=== PATIENT | female | born 1950 | race Two or more races ===

== ENCOUNTER 2018-04-07 07:39 | Day surgery (SDC) | payer OTHER, MEDICAID ==
[~2018-04-07] VITALS: Ht 160 cm; Wt 106.6 kg
[~2018-04-07 07:39] MED LIST: AMLO5TAB2 PO; CLON0.1T PO; CLOP75TA28 PO; ESCI20TA PO; GABA100C9 PO; GLIM2TAB33 PO; HYDR25TA4 PO; LISI-646 PO; LORA1TAB12 PO; METF-370 PO; METO-158 PO; RANI300C7 PO
[2018-04-07] MEDS ORDERED: IOHEXOL 350 MG/ML 100ML IJ ONE (08:30)
[2018-04-07] MEDS ORDERED: LIDOCAINE 2% (LOCAL ANESTH.) PF 5ml SDV ONE (08:30)
[2018-04-07] MEDS ORDERED: fentaNYL CITRATE 100 MCG/2 ML VL ONE (09:34)
[2018-04-07] MEDS ORDERED: VERAPAMIL 2.5MG/ML INJ 2ML VIAL IV ONE (09:34)
[2018-04-07] MEDS ORDERED: ANGIOMAX 250 MG VIAL IV ONE (09:34)
[2018-04-07] MEDS ORDERED: MIDAZOLAM HCL 1MG/1ML-2 ML VIAL ONE (09:35)
[2018-04-07] MEDS ORDERED: HEPARIN SODIUM (PORCINE) 5000 UNITS/ML 1ML VIAL ONE (10:04)
== END 2018-04-07 12:30 | disposition home or self-care (01) ==
LOC: CATH 07:39
PROVIDERS: ATTEND Internal Medicine
DX: R94.39 Abnormal result of other cardiovascular function study (principal); I63.9 Cerebral infarction, unspecified; E66.01 Morbid (severe) obesity due to excess calories; Z68.41 Body mass index [BMI] 40.0-44.9, adult; I10 Essential (primary) hypertension; Z87.891 Personal history of nicotine dependence; E11.9 Type 2 diabetes mellitus without complications; Z79.01 Long term (current) use of anticoagulants; Z79.899 Other long term (current) drug therapy; Z79.84 Long term (current) use of oral hypoglycemic drugs; I47.1 Supraventricular tachycardia
CPT/HCPCS: C1769; C1894; J1644; J2250; J3010; J7030; Q9967; 93458; 99152

== ENCOUNTER 2020-02-14 07:02 | Inpatient (IN) | payer OTHER, MEDICAID ==
[~2020-02-14] VITALS: Ht 160 cm; Wt 99.1 kg
[2020-02-14] VITALS (28 sets, daily range): BP systolic 91–161; BP diastolic 35–106
[~2020-02-14 07:02] MED LIST changes: +AMLO5TAB15 PO; -AMLO5TAB2 PO
[2020-02-14] MEDS ORDERED: ASCORBIC ACID 500 MG TAB PO ONE (07:30)
[2020-02-14] MEDS ORDERED: ZINC SULFATE 220mg CAP or TAB PO ONE (07:30)
[2020-02-14] MEDS ORDERED: cefTRIAXone 1GM/50ML D5W 50 ML IV ONE (07:30)
[2020-02-14] MEDS ORDERED: AZITHROMYCIN 500MG/ 250ML 250 ML IV ONE (07:30)
[2020-02-14 08:31] LABS: Lactic Acid w/Reflex 7.2 mmol/L (0.4-2.0)
[2020-02-14] MEDS: SODIUM CHLORIDE 0.9% 1,000 ML IV ONE ×2 (08:48→10:07)
[2020-02-14] MEDS ORDERED: SODIUM CHLORIDE 0.9% 1,000 ML IV ONE ×4 (08:48→11:30)
[2020-02-14 08:59] LABS: Urine Bacteria FEW /hpf (None Seen); Urine Blood TRACE /uL (Negative); Urine Mucus FEW (None Seen); Urine WBC 23 /hpf (0 - 5)
[2020-02-14 09:06] LABS: Hemoglobin 10.8 g/dL (12.2-16.2)
[2020-02-14 09:08] LABS: BUN/Creatinine Ratio 10.6; Calcium 8.4 mg/dL (8.5-10.1); Hematocrit 34.2 % (36.0-46.0); Mean Corpuscular Hemoglobin 25.5 pg (28.0-32.0); Mean Corpuscular Hgb Conc. 31.6 g/dL (32.0-36.0); Mean Corpuscular Volume 80.6 fL (80.0-100.0); Platelet Count (auto) 230 10^3/uL (140-450); Potassium 3.3 mmol/L (3.5-5.1); Red Blood Cells 4.24 10^6/uL (4.0-5.20); Red Cell Distribution Width 15.7 % (11.8-14.3); White Blood Cell 21.7 10^3/uL (4.4-10.8)
[2020-02-14 09:11] LABS: Bilirubin, Total 1.2 mg/dL (0.2-1.0); Total Protein 6.9 g/dL (6.4-8.2)
[2020-02-14 09:12] LABS: Basophils % (manual) 0 (0.0-2.0); Blast Cells 0; Eosinophils % (manual) 0 (0-7); Monocytes % (manual) 0 (0-12); Promyelocytes % 0; Reactive Lymphocytes 0
[2020-02-14] MEDS ORDERED: NOREPINEPHRINE 8 MG/250ML KIT 250 ML IV ONE (09:29)
[2020-02-14 09:34] LABS: Band Neutrophils % (manual) 25; Lymphocytes % (manual) 1 (10.0-50.0); Metamyelocytes % 7; Myelocytes % 1
[2020-02-14] MEDS: NOREPINEPHRINE 8 MG/250ML KIT 250 ML IV SCH (09:46)
[2020-02-14 09:57] LABS: INR 1.08 (0.9-1.15); Partial Thromboplastin Time 27.9 sec (23.64-32.05)
[2020-02-14] MEDS ORDERED: PROMETHAZINE HCL 25 MG/ML 1ML IV PRN (12:00)
[2020-02-14] MEDS ORDERED: NITROGLYCERIN 0.4 MG SL TAB SL PRN (12:00)
[2020-02-14] MEDS ORDERED: ACETAMINOPHEN 325 MG TAB PO PRN (12:00)
[2020-02-14] MEDS ORDERED: MORPHINE SULF INJ 2 MG/ML SYRINGE 1ML IV PRN (12:00)
[2020-02-14] MEDS ORDERED: hydrALAZINE HCL 20 MG/ML VL IV ONE (12:00)
[2020-02-14] MEDS ORDERED: HYDROcodone-ACET 5/325MG TAB PO PRN (12:00)
[2020-02-14] MEDS ORDERED: DEXTROSE (50%) 50ML SYRG IV PRN (12:15)
[2020-02-14] MEDS ORDERED: POTASSIUM CHL 20MEQ/100ML 100 ML IV ONE (12:15)
[2020-02-14] MEDS ORDERED: ENOXAPARIN SOD 100 MG/1 ML SYRINGE SC ONE (12:15)
[2020-02-14] MEDS: SODIUM CHLORIDE 0.9% 1,000 ML IV SCH ×2 (12:55→22:05)
[2020-02-14] MEDS: ACCU-CHEK COMFORT CURVE STRIP VI SCH ×2 (18:04→22:16)
[2020-02-14] MEDS: InsuLIN REG 1unit/0.01ml Soln (100units/ml) SC SCH ×2 (18:06→22:17)
[2020-02-14] MEDS ORDERED: LORazepam 0.5 MG TAB PO PRN (21:00)
[2020-02-14] MEDS: GABAPENTIN 100 MG CAP PO SCH (22:05)
[2020-02-14] MEDS: PIPERACILLIN-TAZOB 2.25GM 50 ML IV SCH (23:53)
[2020-02-15] VITALS (48 sets, daily range): BP systolic 112–202; BP diastolic 47–113
[2020-02-15 05:04] LABS: Hemoglobin 9.4 g/dL (12.2-16.2)
[2020-02-15 05:05] LABS: Hematocrit 29.1 % (36.0-46.0); Mean Corpuscular Hemoglobin 25.9 pg (28.0-32.0); Mean Corpuscular Hgb Conc. 32.3 g/dL (32.0-36.0); Mean Corpuscular Volume 80.2 fL (80.0-100.0); Platelet Count (auto) 162 10^3/uL (140-450); Red Blood Cells 3.62 10^6/uL (4.0-5.20); Red Cell Distribution Width 15.9 % (11.8-14.3); White Blood Cell 23.4 10^3/uL (4.4-10.8)
[2020-02-15 05:07] LABS: Basophils % (manual) 0 (0.0-2.0); Blast Cells 0; Eosinophils % (manual) 0 (0-7); Metamyelocytes % 0; Myelocytes % 0; Promyelocytes % 0; Reactive Lymphocytes 0
[2020-02-15 05:19] LABS: Band Neutrophils % (manual) 4; Lymphocytes % (manual) 2 (10.0-50.0); Monocytes % (manual) 2 (0-12)
[2020-02-15 05:22] LABS: Calcium 7.4 mg/dL (8.5-10.1); Potassium 3.6 mmol/L (3.5-5.1)
[2020-02-15 05:24] LABS: BUN/Creatinine Ratio 20.4
[2020-02-15] MEDS: PIPERACILLIN-TAZOB 2.25GM 50 ML IV SCH ×2 (06:05→14:01)
[2020-02-15] MEDS: ACCU-CHEK COMFORT CURVE STRIP VI SCH ×4 (06:38→22:00)
[2020-02-15] MEDS: InsuLIN REG 1unit/0.01ml Soln (100units/ml) SC SCH ×4 (06:38→22:09)
[2020-02-15] MEDS: SODIUM CHLORIDE 0.9% 1,000 ML IV SCH (08:00)
[2020-02-15] MEDS: GLIMEPIRIDE 2 MG TAB PO SCH (08:58)
[2020-02-15] MEDS ORDERED: cefTRIAXone 1GM/50ML D5W 50 ML IV ONE (09:00)
[2020-02-15] MEDS ORDERED: CHOLECALCIFEROL (VITD3) 1,000IU=25mCg TAB PO SCH (10:00)
[2020-02-15] MEDS ORDERED: ASCORBIC ACID 500 MG TAB PO SCH (10:00)
[2020-02-15] MEDS ORDERED: ZINC SULFATE 220mg CAP or TAB PO SCH (10:00)
[2020-02-15] MEDS ORDERED: PATIENTS OWN MEDICATION (Escitalopram Oxalate (Lexapro) 1 TAB) PO SCH (10:00)
[2020-02-15] MEDS: NOREPINEPHRINE 8 MG/250ML KIT 250 ML IV SCH (10:07)
[2020-02-15] MEDS: AZITHROMYCIN 500MG/ 250ML 250 ML IV SCH (10:57)
[2020-02-15] MEDS: PANTOPRAZOLE 40 MG TAB PO SCH (10:59)
[2020-02-15] MEDS: CLOPIDOGREL BISULFATE 75 MG TAB PO SCH (10:59)
[2020-02-15] MEDS: CITALOPRAM HYDROBR 20 MG TAB PO SCH (10:59)
[2020-02-15] MEDS ORDERED: LISINOPRIL 20 MG TAB PO SCH (14:30)
[2020-02-15] MEDS ORDERED: IPRATROPIUM BROM 0.5 MG/2.5ML INH SOL NEB PRN (14:30)
[2020-02-15] MEDS ORDERED: LORazepam 0.5 MG TAB PO PRN (14:30)
[2020-02-15] MEDS ORDERED: FUROSEMIDE 100 MG/10ML VIAL IV ONE (14:30)
[2020-02-15] MEDS: methylPREDNISolone SOD SUCC 125 MG/2 ML VL IV SCH ×2 (14:49→21:49)
[2020-02-15] MEDS: LEVALBUTEROL HCL 1.25 MG/3 ML NEB NEB SCH ×3 (14:50→23:53)
[2020-02-15] MEDS: METOPROLOL TARTRATE 50 MG TAB PO SCH ×2 (14:56→21:51)
[2020-02-15] MEDS ORDERED: IOHEXOL 350 MG/ML 100ML IJ ONE (15:24)
[2020-02-15] MEDS ORDERED: PIPERACILLIN-TAZOB 3.375GM 100 ML IV SCH (18:00)
[2020-02-15] MEDS: PIPERACILLIN-TAZOB 3.375GM 100 ML IV SCH (18:36)
[2020-02-15] MEDS: POTASSIUM CHL 20 Meq TABLET PO SCH (18:37)
[2020-02-15] MEDS: amLODIPine BESYLATE 5 MG TAB PO SCH (18:38)
[2020-02-15] MEDS: GABAPENTIN 100 MG CAP PO SCH (21:49)
[2020-02-16] VITALS (28 sets, daily range): BP systolic 127–179; BP diastolic 41–90
[2020-02-16] MEDS: PIPERACILLIN-TAZOB 3.375GM 100 ML IV SCH ×3 (00:30→12:25)
[2020-02-16] MEDS: methylPREDNISolone SOD SUCC 125 MG/2 ML VL IV SCH ×2 (05:45→14:33)
[2020-02-16] MEDS: LEVALBUTEROL HCL 1.25 MG/3 ML NEB NEB SCH ×3 (06:14→19:03)
[2020-02-16] MEDS: ACCU-CHEK COMFORT CURVE STRIP VI SCH ×3 (07:02→18:27)
[2020-02-16] MEDS: InsuLIN REG 1unit/0.01ml Soln (100units/ml) SC SCH ×3 (07:06→18:29)
[2020-02-16 07:32] LABS: Basophils # (auto) 0 10 ^3/uL (0-0.2); Basophils % (auto) 0.1 % (0.0-2.0); Eosinophils # (auto) 0 10 ^3/uL (0-0.8); Eosinophils % (auto) 0.3 % (0.0-7.0); Hematocrit 33.2 % (36.0-46.0); Hemoglobin 10.5 g/dL (12.2-16.2); Lymphocytes # (auto) 0.6 10 ^3/uL (0.4-5.4); Lymphocytes % (auto) 5.2 % (10.0-50.0); Mean Corpuscular Hemoglobin 25.3 pg (28.0-32.0); Mean Corpuscular Hgb Conc. 31.7 g/dL (32.0-36.0); Mean Corpuscular Volume 79.6 fL (80.0-100.0); Monocytes # (auto) 0.2 10 ^3/uL (0-1.3); Monocytes % (auto) 1.4 % (0.0-12.0); Neutrophils # (auto) 10.7 10 ^3/uL (1.6-8.6); Platelet Count (auto) 170 10^3/uL (140-450); Red Blood Cells 4.17 10^6/uL (4.0-5.20); Red Cell Distribution Width 16.1 % (11.8-14.3); White Blood Cell 11.5 10^3/uL (4.4-10.8)
[2020-02-16 07:53] LABS: Calcium 8.6 mg/dL (8.5-10.1); Potassium 3.3 mmol/L (3.5-5.1)
[2020-02-16] MEDS ORDERED: GLIMEPIRIDE 2 MG TAB PO SCH (08:00)
[2020-02-16] MEDS: GLIMEPIRIDE 2 MG TAB PO SCH (08:33)
[2020-02-16] MEDS ORDERED: FUROSEMIDE 100 MG/10ML VIAL IV SCH (10:00)
[2020-02-16] MEDS ORDERED: HCTZ 25 MG TAB PO SCH (10:00)
[2020-02-16] MEDS: CITALOPRAM HYDROBR 20 MG TAB PO SCH (10:01)
[2020-02-16] MEDS: CLOPIDOGREL BISULFATE 75 MG TAB PO SCH (10:01)
[2020-02-16] MEDS: METOPROLOL TARTRATE 50 MG TAB PO SCH (10:01)
[2020-02-16] MEDS: POTASSIUM CHL 20 Meq TABLET PO SCH (10:02)
[2020-02-16] MEDS: PANTOPRAZOLE 40 MG TAB PO SCH (10:02)
[2020-02-16] MEDS: AZITHROMYCIN 500MG/ 250ML 250 ML IV SCH (10:07)
[2020-02-16] MEDS: amLODIPine BESYLATE 5 MG TAB PO SCH (12:25)
[2020-02-16] MEDS ORDERED: POTASSIUM CHL 20 Meq TABLET PO ONE (15:30)
[2020-02-16] MEDS ORDERED: LISINOPRIL 20 MG TAB PO SCH (15:30)
[2020-02-16] MEDS ORDERED: ERTAPENEM SOD 1 GM INJ VIAL IM SCH (15:30)
[2020-02-16] MEDS ORDERED: ERTAPENEM SOD 1 GM INJ VIAL IV SCH (15:45)
[2020-02-16] MEDS ORDERED: ERTAPENEM SOD INJ 1 GM in SODIUM CHL 0.9% 50 ML IV SCH (16:00)
[2020-02-16] MEDS ORDERED: PRED20TA2 PO (16:03)
[2020-02-16] MEDS ORDERED: FUR20T PO (16:03)
[2020-02-16] MEDS ORDERED: POTA-220 PO (16:03)
[2020-02-17] MEDS ORDERED: predniSONE 20 MG TAB PO SCH (10:00)
[2020-02-17] MEDS ORDERED: FUROSEMIDE 20 MG TAB PO SCH (10:00)
== END 2020-02-16 21:21 | disposition home health service (06) | DRG 871 ==
LOC: ER 07:02 → EDBD 07:02 → TELE 07:03 → ICU WEST 15:20 → DOU IN ICU 02-15 15:34 → ICU WEST 02-15 15:53
PROVIDERS: ADMIT Internal Medicine; ATTEND Internal Medicine
DX: A41.9 Sepsis, unspecified organism (principal); J96.01 Acute respiratory failure with hypoxia; N17.0 Acute kidney failure with tubular necrosis; R65.21 Severe sepsis with septic shock; E44.1 Mild protein-calorie malnutrition; I47.1 Supraventricular tachycardia; J98.11 Atelectasis; N39.0 Urinary tract infection, site not specified; Z16.12 Extended spectrum beta lactamase (ESBL) resistance; Z68.41 Body mass index [BMI] 40.0-44.9, adult; J44.0 Chronic obstructive pulmonary disease with (acute) lower respiratory infection; J44.1 Chronic obstructive pulmonary disease with (acute) exacerbation; I50.30 Unspecified diastolic (congestive) heart failure; E87.6 Hypokalemia; F41.9 Anxiety disorder, unspecified; D64.9 Anemia, unspecified; E11.9 Type 2 diabetes mellitus without complications; E66.01 Morbid (severe) obesity due to excess calories; I11.0 Hypertensive heart disease with heart failure; I25.10 Atherosclerotic heart disease of native coronary artery without angina pectoris; Z20.828 Contact with and (suspected) exposure to other viral communicable diseases; F17.210 Nicotine dependence, cigarettes, uncomplicated; F32.9 Major depressive disorder, single episode, unspecified; Z79.02 Long term (current) use of antithrombotics/antiplatelets; Z82.3 Family history of stroke; Z82.49 Family history of ischemic heart disease and other diseases of the circulatory system; Z82.5 Family history of asthma and other chronic lower respiratory diseases; Z71.6 Tobacco abuse counseling
CPT/HCPCS: 36415; 36556; 71045; 71275; 80048; 80053; 81001; 82728; 82962; 83605; 83615; 83735; 83880; 84443; 85007; 85025; 85027; 85379; 85610; 85730; 87040; 87070; 87077; 87081; 87086; 87088; 87186; 87804; 87880; 93005; 93306; 93970; 94640; 96365; 96366; 96367; 96368; 96372; 97163; 99291; G0378; J0696; J1335; J1815; J2543; J3480

== ENCOUNTER 2022-04-11 07:50 | Inpatient (IN) | payer OTHER, MEDICAID ==
[~2022-04-11] VITALS: Ht 157.5 cm; Wt 114.8 kg
[~2022-04-11 07:50] MED LIST changes: +AMLO-489 PO; -AMLO5TAB15 PO; +FUR20T PO; -HYDR25TA4 PO; -LISI-646 PO; +LISI20TA28 PO; -LORA1TAB12 PO; +LORA1TAB23 PO; +POTA-220 PO; +PRED20TA2 PO
[2022-04-11] MEDS ORDERED: ASPirin 325 MG TAB PO ONE (08:30)
[2022-04-11 09:02] LABS: Basophils # (auto) 0.3 10 ^3/uL (0-0.2); Basophils % (auto) 2.8 % (0.0-2.0); Eosinophils # (auto) 0.3 10 ^3/uL (0-0.8); Eosinophils % (auto) 3.5 % (0.0-7.0); Hematocrit 35.7 % (36.0-46.0); Hemoglobin 11.7 g/dL (12.2-16.2); Lymphocytes # (auto) 1.2 10 ^3/uL (0.4-5.4); Lymphocytes % (auto) 12.2 % (10.0-50.0); Mean Corpuscular Hemoglobin 27.1 pg (28.0-32.0); Mean Corpuscular Hgb Conc. 32.6 g/dL (32.0-36.0); Mean Corpuscular Volume 83.1 fL (80.0-100.0); Monocytes # (auto) 0.4 10 ^3/uL (0-1.3); Monocytes % (auto) 4.2 % (0.0-12.0); Neutrophils # (auto) 7.6 10 ^3/uL (1.6-8.6); Neutrophils % (auto) 77.3 % (37.0-80.0); Nucleated Red Blood Cells % 0.1 %; Red Cell Distribution Width 14.6 % (11.8-14.3); White Blood Cell 9.8 10^3/uL (4.4-10.8)
[2022-04-11 09:18] LABS: Albumin 3.7 g/dL (3.4-5.0); Calcium 8.9 mg/dL (8.5-10.1); Potassium 3.3 mmol/L (3.5-5.1)
[2022-04-11 09:22] LABS: BUN/Creatinine Ratio 12.5; Bilirubin, Total 0.6 mg/dL (0.2-1.0); Total Protein 7.6 g/dL (6.4-8.2)
[2022-04-11] MEDS ORDERED: POTASSIUM CHL 20 Meq TABLET PO ONE (10:00)
[2022-04-11] MEDS ORDERED: POTASSIUM EFFERVESENT TAB 25 MEQ PO ONE (10:00)
[2022-04-11] MEDS ORDERED: MORPHINE SULFATE INJ 2 MG/ml SYRG IV PRN (10:45)
[2022-04-11] MEDS ORDERED: NITROGLYCERIN 0.4 MG SL TAB SL PRN (10:45)
[2022-04-11] MEDS ORDERED: HYDROcodone-ACET 5/325MG TAB PO PRN (10:45)
[2022-04-11] MEDS ORDERED: ONDANSETRON HCL 4 MG/2 ML VIAL IV PRN (10:45)
[2022-04-11] MEDS ORDERED: ACETAMINOPHEN 325 MG TAB PO PRN (10:45)
[2022-04-11] MEDS ORDERED: LORAZEPAM 1 MG PO PRN (13:00)
[2022-04-11] MEDS ORDERED: LORazepam 0.5 MG TAB PO PRN (13:30)
[2022-04-11 17:00] VITALS: BP 170/63
[2022-04-11] MEDS ORDERED: CIPR250T3 PO (17:11)
[2022-04-11] MEDS ORDERED: CRAN1TAB PO (17:18)
[2022-04-11] MEDS ORDERED: CHLO25TA2 PO (17:19)
[2022-04-11] MEDS ORDERED: CHOL20007 PO (17:21)
[2022-04-11] MEDS ORDERED: BUSP5TAB51 PO (17:23)
[2022-04-11] MEDS: metFORMIN HYDROCHLORIDE 500 MG TAB PO SCH (18:40)
[2022-04-11 22:00] VITALS: BP 173/59
[2022-04-11] MEDS ORDERED: GABAPENTIN 100 MG CAP PO SCH (22:00)
[2022-04-11] MEDS: cloNIDine HCL 0.1 MG TAB PO SCH (22:11)
[2022-04-11] MEDS: METOPROLOL TARTRATE 50 MG TAB PO SCH (22:12)
[2022-04-11] MEDS: LISINOPRIL 20 MG TAB PO SCH (22:14)
[2022-04-11 23:41] LABS: Urine Bacteria MANY /hpf (None Seen); Urine Blood Negative /uL (Negative); Urine Mucus FEW (None Seen); Urine WBC 63 /hpf (0 - 5)
[2022-04-12 05:00] VITALS: BP 127/46
[2022-04-12] MEDS: metFORMIN HYDROCHLORIDE 500 MG TAB PO SCH (06:33)
[2022-04-12 08:00] VITALS: BP_SYST 147; BP_DIAS 51; BP_DIAS 55
[2022-04-12] MEDS: LISINOPRIL 20 MG TAB PO SCH (09:23)
[2022-04-12] MEDS: METOPROLOL TARTRATE 50 MG TAB PO SCH (09:29)
[2022-04-12] MEDS: cloNIDine HCL 0.1 MG TAB PO SCH (09:31)
[2022-04-12] MEDS ORDERED: ENOXAPARIN SOD 40 MG/0.4 ML SYRINGE SC SCH ×2 (10:00→22:00)
[2022-04-12] MEDS ORDERED: FAMOTIDINE 20 MG TAB PO SCH (10:00)
[2022-04-12] MEDS ORDERED: CLOPIDOGREL BISULFATE 75 MG TAB PO SCH (10:00)
[2022-04-12] MEDS ORDERED: GLIMEPIRIDE 2 MG TAB PO SCH (10:00)
[2022-04-12] MEDS ORDERED: FUROSEMIDE 20 MG TAB PO SCH (10:00)
[2022-04-12] MEDS ORDERED: amLODIPine BESYLATE 5 MG TAB PO SCH (10:00)
[2022-04-12] MEDS ORDERED: CITALOPRAM HYDROBR 20 MG TAB PO SCH (10:00)
[2022-04-12] MEDS ORDERED: POTASSIUM CHL 20 Meq TABLET PO SCH (10:00)
[2022-04-12] MEDS ORDERED: predniSONE 20 MG TAB PO SCH (10:00)
[2022-04-12 12:00] VITALS: BP 147/55
[2022-04-12 15:09] VITALS: BP 140/55
[2022-04-12 15:18] VITALS: BP 145/70
== END 2022-04-12 15:40 | disposition home or self-care (01) | DRG 309 ==
LOC: ER 07:50 → TELE 10:39 → TELE-WESTW 15:34 → TELE-CENTR 16:10
PROVIDERS: ADMIT Internal Medicine; ATTEND Internal Medicine
DX: I47.1 Supraventricular tachycardia (principal); Z68.42 Body mass index [BMI] 45.0-49.9, adult; N39.0 Urinary tract infection, site not specified; R07.9 Chest pain, unspecified; E66.01 Morbid (severe) obesity due to excess calories; E78.5 Hyperlipidemia, unspecified; E11.9 Type 2 diabetes mellitus without complications; F17.210 Nicotine dependence, cigarettes, uncomplicated; F41.9 Anxiety disorder, unspecified; I10 Essential (primary) hypertension; I48.0 Paroxysmal atrial fibrillation; J44.9 Chronic obstructive pulmonary disease, unspecified; R77.8 Other specified abnormalities of plasma proteins; Z20.822 Contact with and (suspected) exposure to COVID-19; Z82.3 Family history of stroke; Z82.5 Family history of asthma and other chronic lower respiratory diseases; Z79.84 Long term (current) use of oral hypoglycemic drugs
CPT/HCPCS: 36415; 71045; 80053; 81001; 83735; 83880; 84443; 84484; 85025; 93005; 93306; G0378

== ENCOUNTER 2022-11-27 15:57 | Inpatient (IN) | payer OTHER, MEDICAID ==
[~2022-11-27] VITALS: Ht 160 cm; Wt 90.8 kg
[~2022-11-27 15:57] MED LIST changes: +BUSP5TAB51 PO; +CHLO25TA2 PO; +CHOL20007 PO; +CIPR250T3 PO; +CRAN1TAB PO
[2022-11-27 16:50] LABS: Basophils # (auto) 0.1 10 ^3/uL (0-0.2); Basophils % (auto) 0.5 % (0.0-2.0); Eosinophils # (auto) 0.5 10 ^3/uL (0-0.8); Hematocrit 37.9 % (36.0-46.0); Hemoglobin 12.4 g/dL (12.2-16.2); Lymphocytes # (auto) 0.8 10 ^3/uL (0.4-5.4); Lymphocytes % (auto) 6.9 % (10.0-50.0); Mean Corpuscular Hemoglobin 26.9 pg (28.0-32.0); Mean Corpuscular Hgb Conc. 32.9 g/dL (32.0-36.0); Mean Corpuscular Volume 81.8 fL (80.0-100.0); Monocytes # (auto) 0.5 10 ^3/uL (0-1.3); Monocytes % (auto) 4.3 % (0.0-12.0); Neutrophils # (auto) 10.1 10 ^3/uL (1.6-8.6); Neutrophils % (auto) 84.3 % (37.0-80.0); Red Blood Cells 4.63 10^6/uL (4.0-5.20); Red Cell Distribution Width 15.2 % (11.8-14.3)
[2022-11-27 17:03] LABS: INR 0.96 (0.9-1.15)
[2022-11-27 17:08] LABS: Albumin 4.1 g/dL (3.4-5.0); Calcium 9.1 mg/dL (8.5-10.1); Magnesium 2.1 mg/dL (1.6-2.6)
[2022-11-27 17:10] LABS: Total Protein 7.5 g/dL (6.4-8.2)
[2022-11-27] MEDS ORDERED: ACETAMINOPHEN 325 MG TAB PO PRN (23:00)
[2022-11-27] MEDS ORDERED: PANTOPRAZOLE 40 MG/10 ML VIAL INJ IV ONE (23:00)
[2022-11-27] MEDS ORDERED: ALBUTEROL SULF 2.5 MG/0.5ML(0.5%) NEB SOLN NEB PRN (23:00)
[2022-11-27] MEDS ORDERED: cefTRIAXone 1GM/50ML D5W 50 ML IV ONE (23:15)
[2022-11-27] MEDS ORDERED: SODIUM CHLORIDE 0.9% 1,000 ML IV SCH (23:15)
[2022-11-27] MEDS ORDERED: DEXTROSE (50%) 50ML SYRG IV PRN (23:15)
[2022-11-27] MEDS ORDERED: hydrALAZINE HCL 20 MG/ML VL IV PRN (23:15)
[2022-11-27] MEDS ORDERED: FUROSEMIDE 20 MG/2 ML VIAL IV ONE (23:15)
[2022-11-27 23:45] LABS: Cholesterol 158 mg/dL (< 200); Triglycerides 127 mg/dL (< 150)
[2022-11-27 23:48] LABS: HDL Cholesterol 51 mg/dL (40-59); LDL Cholesterol 103 mg/dL (< 100)
[2022-11-27] MEDS ORDERED: ALBUTEROL MEDNEB 2.5 mg/3ml NEB ONE (23:53)
[2022-11-28 01:18] VITALS: BP 160/70
[2022-11-28] MEDS: ALBUTEROL SULF 2.5 MG/0.5ML(0.5%) NEB SOLN NEB SCH ×5 (02:28→18:43)
[2022-11-28] MEDS: IPRATROPIUM BROM 0.5 MG/2.5ML INH SOL NEB SCH ×5 (02:28→18:43)
[2022-11-28 04:52] LABS: Eosinophils # (auto) 0.3 10 ^3/uL (0-0.8); Hemoglobin 11.2 g/dL (12.2-16.2); Monocytes # (auto) 0.6 10 ^3/uL (0-1.3)
[2022-11-28 04:53] LABS: Basophils # (auto) 0 10 ^3/uL (0-0.2); Basophils % (auto) 0.3 % (0.0-2.0); Eosinophils % (auto) 2.1 % (0.0-7.0); Hematocrit 34.1 % (36.0-46.0); Lymphocytes # (auto) 0.9 10 ^3/uL (0.4-5.4); Lymphocytes % (auto) 6.2 % (10.0-50.0); Mean Corpuscular Hemoglobin 26.6 pg (28.0-32.0); Mean Corpuscular Hgb Conc. 32.8 g/dL (32.0-36.0); Monocytes % (auto) 4.3 % (0.0-12.0); Neutrophils # (auto) 12.3 10 ^3/uL (1.6-8.6); Neutrophils % (auto) 87.1 % (37.0-80.0); Red Cell Distribution Width 14.6 % (11.8-14.3); White Blood Cell 14.1 10^3/uL (4.4-10.8)
[2022-11-28 05:13] LABS: Albumin 3.4 g/dL (3.4-5.0); Calcium 8.6 mg/dL (8.5-10.1); Potassium 4.1 mmol/L (3.5-5.1)
[2022-11-28 05:17] LABS: BUN/Creatinine Ratio 16.1; Bilirubin, Total 1.1 mg/dL (0.2-1.0); Total Protein 7.1 g/dL (6.4-8.2)
[2022-11-28] MEDS ORDERED: ALBUTEROL MEDNEB 2.5 mg/3ml NEB ONE ×4 (05:58→18:01)
[2022-11-28] MEDS: InsuLIN REG 1unit/0.01ml Soln (100units/ml) SC SCH ×3 (06:40→17:02)
[2022-11-28] MEDS: ACCU-CHEK COMFORT CURVE STRIP VI SCH ×3 (06:40→17:01)
[2022-11-28] MEDS ORDERED: cefTRIAXone 1GM/50ML D5W 50 ML IV SCH (09:00)
[2022-11-28] MEDS ORDERED: LISINOPRIL 20 MG TAB PO SCH (10:00)
[2022-11-28] MEDS ORDERED: SODIUM CHLORIDE 0.9% 1,000 ML IV ONE (10:00)
[2022-11-28] MEDS ORDERED: PANTOPRAZOLE 40 MG/10 ML VIAL INJ IV SCH (10:00)
[2022-11-28] MEDS ORDERED: CLOPIDOGREL BISULFATE 75 MG TAB PO SCH (10:00)
[2022-11-28] MEDS ORDERED: FUROSEMIDE 20 MG/2 ML VIAL IV SCH (10:00)
[2022-11-28] MEDS ORDERED: cloNIDine HCL 0.1 MG TAB PO SCH (10:00)
[2022-11-28] MEDS ORDERED: busPIRone HCL 10 MG TAB PO SCH (10:00)
[2022-11-28] MEDS ORDERED: amLODIPine BESYLATE 5 MG TAB PO SCH (10:00)
[2022-11-28] MEDS ORDERED: METOPROLOL TARTRATE 50 MG TAB PO SCH (10:00)
[2022-11-28] MEDS ORDERED: ENOXAPARIN SOD 40 MG/0.4 ML SYRINGE SC SCH (10:00)
[2022-11-28 13:25] LABS: Urine Bacteria NONE SEEN /hpf (None Seen); Urine Blood Negative /uL (Negative); Urine Mucus FEW (None Seen); Urine Specific Gravity 1.011 (1.001-1.035); Urine WBC <1 /hpf (0 - 5)
[2022-11-28 13:45] LABS: Alcohol, Urine < 3.0 mg/dL (0-10); Amphetamine Screen, Urine NEGATIVE (NEGATIVE); Barbiturate Scree,Urine NEGATIVE (NEGATIVE); Benzodiazephine Screen, Urine NEGATIVE (NEGATIVE); Cannabinoid Screen, Urine NEGATIVE (NEGATIVE); Cocaine Screen, Urine NEGATIVE (NEGATIVE); Opiate Scree,Urine NEGATIVE (NEGATIVE); Phencyclidine Screen, Urine NEGATIVE (NEGATIVE)
[2022-11-28] MEDS ORDERED: ALBUAER3 IN (13:49)
[2022-11-28] MEDS ORDERED: LEVO500T31 PO (13:49)
[2022-11-28 16:15] LABS: Basophils # (auto) 0 10 ^3/uL (0-0.2); Basophils % (auto) 0.4 % (0.0-2.0); Eosinophils # (auto) 0.6 10 ^3/uL (0-0.8); Eosinophils % (auto) 7.4 % (0.0-7.0); Hematocrit 31.3 % (36.0-46.0); Hemoglobin 10.5 g/dL (12.2-16.2); Mean Corpuscular Hemoglobin 27.7 pg (28.0-32.0); Mean Corpuscular Hgb Conc. 33.5 g/dL (32.0-36.0); Mean Corpuscular Volume 82.7 fL (80.0-100.0); Monocytes # (auto) 0.6 10 ^3/uL (0-1.3); Monocytes % (auto) 7.2 % (0.0-12.0); Red Blood Cells 3.79 10^6/uL (4.0-5.20); Red Cell Distribution Width 14.8 % (11.8-14.3); White Blood Cell 8.2 10^3/uL (4.4-10.8)
[2022-11-28 16:33] LABS: BUN/Creatinine Ratio 19.3; Calcium 8.3 mg/dL (8.5-10.1); Potassium 3.7 mmol/L (3.5-5.1)
[2022-11-28 17:53] VITALS: BP 109/46
[2022-11-28] MEDS ORDERED: GABAPENTIN 100 MG CAP PO SCH (22:00)
== END 2022-11-28 18:56 | disposition home or self-care (01) | DRG 189 ==
LOC: ER 15:57 → OVERFLOW 22:49
PROVIDERS: ADMIT Nurse Practitioner Family; ATTEND Internal Medicine
DX: J96.21 Acute and chronic respiratory failure with hypoxia (principal); J98.11 Atelectasis; N39.0 Urinary tract infection, site not specified; J44.0 Chronic obstructive pulmonary disease with (acute) lower respiratory infection; F41.9 Anxiety disorder, unspecified; J20.9 Acute bronchitis, unspecified; D72.829 Elevated white blood cell count, unspecified; E66.01 Morbid (severe) obesity due to excess calories; F17.210 Nicotine dependence, cigarettes, uncomplicated; I10 Essential (primary) hypertension; I48.91 Unspecified atrial fibrillation; Z20.822 Contact with and (suspected) exposure to COVID-19; T50.1X5A Adverse effect of loop [high-ceiling] diuretics, initial encounter; N28.9 Disorder of kidney and ureter, unspecified; E11.40 Type 2 diabetes mellitus with diabetic neuropathy, unspecified; K21.9 Gastro-esophageal reflux disease without esophagitis; F32.A Depression, unspecified; Z99.81 Dependence on supplemental oxygen; Y92.89 Other specified places as the place of occurrence of the external cause; Z82.5 Family history of asthma and other chronic lower respiratory diseases; Z82.3 Family history of stroke; Z68.35 Body mass index [BMI] 35.0-35.9, adult
CPT/HCPCS: 36415; 71045; 78582; 80048; 80053; 80061; 80307; 81001; 82962; 83036; 83605; 83735; 83880; 84443; 84484; 85025; 85379; 85610; 87040; 87426; 87804; 93005; 93970; 94640; 97163; C9113; G0378; J0696; J1815